=== PATIENT | female | born 1990 ===

== ENCOUNTER 2021-08-24 17:31 | Emergency (ER) | payer MEDICAID, OTHER ==
[~2021-08-24] VITALS: Ht 165.1 cm; Wt 59.0 kg
--- NOTE | 2021-08-24 18:21 | NUR ---
THE REED TO THE PT'S CAR HANDED TO PT'S MOTHER.
[2021-08-24] MEDS ORDERED: CLOZ100T32 PO (18:22)
[2021-08-24] MEDS: HOME MED MISCELLANEOUS PO SCH (18:56)
--- NOTE | 2021-08-24 18:56 | NUR ---
CLOZAPINE 400 MG PO GIVEN PER MD ORDER. DINNER TRAY PROVIDED FOR PT.
[2021-08-24] MEDS ORDERED: diphenhydrAMINE 50 MG/1 ML VIAL IV ONE (19:00)
[2021-08-24] MEDS ORDERED: HALOPERIDOL LACTATE 5 MG/1 ML VIAL IV ONE (19:00)
[2021-08-24] MEDS ORDERED: LORAZEPAM 2 MG/1 ML VIAL IV ONE (19:00)
[2021-08-24 19:12] LABS: HEMATOCRIT 39.5 % (31.2-41.9); MEAN CORPUSCULAR HEMOGLOBIN 29.9 uug (24.7-32.8); MEAN CORPUSCULAR VOLUME 87.8 fL (75.5-95.3); PLATELET COUNT (AUTO) 294 K/uL (179-408)
[2021-08-24 19:17] LABS: CREATININE 0.8 mg/dL (0.6-1.3); POTASSIUM 3.9 mmol/L (3.5-5.1)
[2021-08-24 19:22] LABS: BILIRUBIN,DIRECT 0.1 mg/dL (0.0-0.2); BILIRUBIN,TOTAL 0.5 mg/dL (0.2-1.0); TOTAL PROTEIN, SERUM 6.5 g/dL (6.4-8.2)
[2021-08-24 20:45] LABS: MAGNESIUM 2.3 mg/dL (1.8-2.4)
[2021-08-24] MEDS ORDERED: CYANOCOBALAMIN 1000 MCG/ML VIAL IM ONE (23:30)
[2021-08-25] MEDS ORDERED: CYANOCOBALAMIN 1000 MCG/ML VIAL ONE (00:17)
--- NOTE | 2021-08-25 07:10 | NUR ---
recieved the pt in room. pt fully awake, no sign of distress at this time. deneis any pain or complain at this time.
--- NOTE | 2021-08-25 08:31 | NUR ---
CALLED CARLOTTA HARTLEY FOR PSYCH EVAL AND LEFT A MESSAGE.
--- NOTE | 2021-08-25 08:45 | NUR ---
CALLED ART AGAIN. ART SAID TO CONTACT [facility] FIRST.
[2021-08-25] MEDS ORDERED: CLOZARIL 100 MG PO ONE (09:00)
--- NOTE | 2021-08-25 09:04 | NUR ---
CLOZARIL 100MG PO FROM PT'S OWN SUPPLY GIVEN PER MD ORDER.
--- NOTE | 2021-08-25 09:11 | NUR ---
CALLED PEDIATRICIAN, ETA 0NE HOUR
--- NOTE | 2021-08-25 09:52 | NUR ---
father came to visit the pt and brought kosher food. pt allowed that father to come inside the room and talk to the pt.
--- NOTE | 2021-08-25 10:20 | NUR ---
social services director at bedside.
--- NOTE | 2021-08-25 10:35 | NUR ---
social insurance administrator talking to pt's father.
--- NOTE | 2021-08-25 10:58 | NUR ---
Clinical Social Work Note ABHI met with 30 year old female who is alert and oriented x4. Patient presents with a withdrawn mood and flat affect. SW assessed for suicidal idea, plan, and intent to ensure safety. Patient stated that she is not having suicidal ideation, plan, or intent. SW asked patient for her psychiatrist information and reminded her the importance of taking her medication regularly. Patient was quite it and spoke very little. Patient stated that her psychiatrist name is Dr. Reyes and shared that she sees him every 3 months. SW encouraged patient to be consistent with medication. SW provided patient with information for [facility], [address] [place] [id number] , for patient to use if needed. SW asked patient if she has been in outpatient treatment and patient stated she was in therapy 4 months ago and had to stop due to a new job. SW encouraged patient to seek out mental health services. Patient nodded yes to show her understanding. Patient denied SI and/or HI. SW spoke with patient's father at bedside and brother Sohail on speaker phone. Sohail expressed that he is concerned patient has not been eating. SW checked with Arlene SCHROEDER, and she informed SW that patient did eat last night and today. SW informed father and brother that patient ate at the hospital. SW provided psychoeducation regarding the importance of medication compliance for patient's diagnosis. Brother and father stated that they understood. SW informed brother and father that if patient refuses medication again they can take her to [facility] ([address] [place] [address] ). Brother and father stated that they understood.
[2021-08-25] MEDS: HOME MED MISCELLANEOUS PO SCH (11:04)
--- NOTE | 2021-08-25 11:06 | NUR ---
Patient discharged to home in stable condition. Written and verbal after care instructions given. Patient verbalizes understanding of instructions. Stressed follow up or return to ER for worsening s/s.pt axox4, seems calm and comfortable, pt accompanied by father. pt's own bottle of clozaril handed to father. pt walks in steady gait. pt agreed with the plan to be compliant with taking meds at home.
[2021-08-25 11:10] VITALS: BP 111/63
== END 2021-08-25 11:03 | disposition home or self-care (01) ==
LOC: ER 17:33
DX: F32.A Depression, unspecified (principal); F41.9 Anxiety disorder, unspecified; F20.9 Schizophrenia, unspecified; F17.210 Nicotine dependence, cigarettes, uncomplicated
CPT/HCPCS: 36415; 80048; 80076; 82607; 83735; 85025; 96372; 99283; J3420 ×2; A4663